=== PATIENT | female | born 1990 | race Hispanic/Latino ===

== ENCOUNTER 2016-10-29 06:48 | Inpatient (IN) | payer MEDICAID ==
[2016-10-29] MEDS ORDERED: SUBLIMAZE IV PRN (07:50)
[2016-10-29] MEDS ORDERED: BRETHINE SUB-Q PRN (07:50)
[2016-10-29] MEDS ORDERED: MINERAL OIL PO PRN (07:50)
[2016-10-29] MEDS ORDERED: XYLOCAINE 2% INFILTRATI ONE (07:50)
[2016-10-29] MEDS ORDERED: ePHEDrine SULFATE IV PRN (07:50)
--- NOTE | 2016-10-29 07:57 | History and Physical Report ---
History of Present Illness Date of examination: 10/29/16 Date of admission: 10/29/16 07:22 Chief complaint: labor @ 40+6wks, EFW in office 8#7oz 10/25/16 History of present illness: EDC Calculations 10/23/16 Past History : 5 Term Births: 4 Premature Births: 0 Living Children: 4 Para: 4 Mult. Births: 0 Prev : 0 Prev. attempt? 0 Aborta: 0 Elect. Ab: 0 Spont. Ab: 0 Ectopics: 0 # 1 Delivery date: 04/07/2008 Weeks Gestation: 41 labor: no Delivery type: Hours of labor: 8.0 Anesthesia type: epidural [place] [facility] [place] Sex: Male weight: 7 or 8 lbs Name: Rubén Comments: induction for postdtes # 2 Delivery date: 05/06/2011 Weeks Gestation: 40 labor: no Delivery type: Hours of labor: 6 Anesthesia type: none Delivery location: [facility] [place] Sex: Male weight: 9.0 Name: Demari # 3 Delivery date: 03/07/2013 Weeks Gestation: 40 labor: no Delivery type: Hours of labor: 3 Anesthesia type: none Delivery location: [facility] [place] Sex: Female weight: 7 Name: Rakan # 4 Delivery date: 09/14/2015 Weeks Gestation: 40 labor: no Delivery type: Hours of labor: 3 Anesthesia type: none Delivery location: [facility] [place] Infant Sex: Female weight: 7 Name: Joyce Past Medical History: Gallstones Past Medical History Abnormal PAP: negative PASCUAL Exposure: negative Infertility: negative Uterine Anomaly: negative Uterine Surgery (not C/S): negative Other Gynecologic Problems: negative Social Hx: Sue Patient is single Infection History Hx of STD: none Partner hx. of genital herpes: no Genetic History Congenital Heart Defect: Mom: no Dad: no Yue Disease: Mom: no Dad: no Thalassemia Mom: no Dad: no Neural Tube Defect Mom: no Dad: no Down's Syndrome Mom: no Dad: no Vernon-Sachs Mom: no Dad: no Sickle Cell Disease/Trait Mom: no Dad: no Hemophilia Mom: no Dad: no Muscular Dystrophy Mom: no Dad: no Cystic Fibrosis Mom: no Dad: no [place] Chorea Mom: no Dad: no Mental Retardation Mom: no Dad: no Fragile X Mom: no Dad: no Other Genetic/Chromosomal Disorder Mom: no Dad: no Child w/other defect Mom: no Dad: no Enviromental Exposures Xray Exposure: no Medication, drug, or alcohol use since LMP: no Chemical/Other Exposure: no Exposure to Cat Liter: no Active Medications (reviewed today): FORMULA 27-1 MG ORAL TABS ( VIT-FE FUMARATE-FA) 1 po q day as directed Current Allergies (reviewed today): No known allergies Past History Past Medical History: no pertinent history Social history: no significant social history - Obstetrical History Expected Date of Delivery: 10/23/16 Actual Gestation: 40 Week(s) 6 Day(s) : 5 Para: 4 Hx # Term Pregnancies: 4 Number of Pregnancies: 0 Spontaneous Abortions: 0 Induced : 0 Number of Living Children: 4 Medications and Allergies Allergies Allergy/AdvReac Type Severity Reaction Status Date / Time No Known Allergies Allergy Verified 10/29/16 07:37 Home Medications Medication Instructions Recorded Confirmed Last Taken Type Pnv95/Ferrous Fumarate/FA 1 each PO DAILY 10/29/16 10/29/16 10/28/16 09:00 History [Prenavite Tablet] 1 Review of Systems All systems: negative - Physical Exam Breasts: Positive: normal Cardiovascular: Regular rate Lungs: Positive: Clear to auscultation, Normal air movement Abdomen: Positive: normal appearance, soft, normal bowel sounds Genitourinary (Female): Positive: normal external genitalia, normal perenium Vulva: both: normal Vagina: Positive: normal moisture Uterus: Positive: normal size, normal contour Anus/Rectum: Positive: normal perianal skin Extremities: Positive: normal Deep Tendon Reflex Grade: Normal +2 - Obstetrical FHR: category 2 Uterine Contraction Monitor Mode: External Cervical Dilatation: 8 Cervical Effacement Percentage: 80 station: -1 Uterine Contraction Pattern: Irregular Uterine Tone Measurement Phase: Contraction Uterine Contraction Intensity: Strong/Firm Results All other labs normal. Laboratory Data-Patient Name: CHANDANA RAHMAN Test Date Result Blood Type 08/12/2016 B Rh 08/12/2016 Positive Antibody Screen negative Rubella 08/12/2016 immune Serology (RPR) 09/22/2016 nonreactive HBsAg 08/12/2016 Negative Hemoglobin 08/12/2016 8.8 Hematocrit 08/12/2016 27.7 Platelets 08/12/2016 248 [id number] Chlamydia DNA 09/22/2016 Negative GC DNA/Culture 09/22/2016 Urine Culture 09/08/2016 Final report Group B Strep cult negative PAP 08/04/2016 Normal, Satisfactory HIV 09/22/2016 AFP/Quad Screen Glucola Test 01/14/2013 112 3hr GTT (Fasting) 08/29/2016 83 1 hr 08/29/2016 165 2 hr 08/29/2016 112 3 hr 08/29/2016 81 OPTIONAL LABS-Patient Name:CHANDANA RAHMAN Test Date Result Varicella Ab Sickle Cell 08/12/2016 Negative PPD Fibronectin Cystic Fibrosis Parvovirus TSH Free T4 Hepatitis C ALT AST Uric Acid Creatinine 24 hr Urine Protein PHILIP Assessment and Plan patient arrived to L&D in active labor, 26y/o @ 40+6 weeks. GBS Neg, preexisting anemia taking PO iron. was complicated by late care @ 28 weeks. EFW by u/s in office 10/25/16 8#7oz. Orders in EMR, anticipate . Dr. Purcell aware of patient's admission. - Patient Problems (1) 40 weeks gestation of Current Visit: Yes Status: Acute (2) Active labor at term Current Visit: Yes Status: Acute (3) Anemia affecting in third trimester Current Visit: Yes Status: Acute
[2016-10-29] MEDS ORDERED: PITOCin/NS 20 UNIT/1000ML DRIP 1,000 ML IV SCH ×2 (08:00→09:30)
[2016-10-29] MEDS ORDERED: LACTATED RINGERS 1,000 ML IV SCH (08:00)
[2016-10-29 08:04] LABS: Basophils % (Auto) 0.4 % (0.0-1.8); Eosinophils % (Auto) 0.5 % (0.0-4.3); Hematocrit 29.8 % (30.3-42.9); Hemoglobin 9.7 gm/dl (10.1-14.3); Mean Corpuscular HGB Conc 33 % (30-34); Mean Corpuscular Hemoglobin 26 pg (28-32); Mean Corpuscular Volume 81 fl (79-97); Platelet Count 234 K/mm3 (140-440); Red Cell Distribution Width 14.6 % (13.2-15.2); White Blood Count 11.1 K/mm3 (4.5-11.0)
--- NOTE | 2016-10-29 08:33 | Procedure Note ---
OB Delivery Note - Delivery Date of Delivery: 10/29/16 ( Male) [employer] Driver: PADILLA LONGORIA Estimated blood loss: 200cc - Vaginal Delivery presentation: vertex Delivery position: OA (LUZ) Intrapartum events: meconium (light mec) Delivery induction: none Delivery augmentation: rupture of membranes Delivery monitor: external FHT, external uterine Route of delivery: Delivery placenta: spontaneous Delivery cord: 3 umbilical vessels Episiotomy: none Delivery laceration: none Anesthesia: none Delivery comments: viable male del over intact perineum, LUZ, light mec fluid - was vigiour and crying, placed on mother's abdomen for skin to skin. No shoulder dystocia. 3 vessel cord clamped and cut, placenta del intact and complete. Pit to IVF. fudus firm and bleeding scant. Mother's left labia noted edematous and tender to palpation after delivery, no lacerations or bleeding noted. Will use ice and closely observe. 's weight 8#6, Apgars 8/9, EBL 200. Mother and remain LDR stable. Will consult Dr. Purcell regarding labial swelling. - Infant A at 1 minute: 8 at 5 minutes: 9 Gender: Male (8#6)
[2016-10-29] MEDS: NORCO 5/325 PO PRN ×2 (09:20→22:25)
[2016-10-29] MEDS ORDERED: BENADRYL PO PRN (09:30)
[2016-10-29] MEDS ORDERED: ZOFRAN IV PRN (09:30)
[2016-10-29] MEDS ORDERED: TYLENOL PO PRN ×2 (09:30)
[2016-10-29] MEDS ORDERED: PHENERGAN PO PRN (09:30)
[2016-10-29] MEDS: MOTRIN PO SCH ×2 (09:30→18:20)
[2016-10-29] MEDS ORDERED: DERMOPLAST TP PRN (09:30)
[2016-10-29] MEDS ORDERED: TUCKS PAD TP PRN (09:30)
[2016-10-29] MEDS ORDERED: LANSINOH TP PRN (09:30)
[2016-10-29] MEDS ORDERED: PRENATAL VITAMIN PO SCH (10:00)
[2016-10-29] MEDS ORDERED: DULCOLAX PR PRN (10:00)
[2016-10-29] MEDS ORDERED: SODIUM CHLORIDE FLUSH SYRINGE 10 ML IV PRN (10:00)
[2016-10-29] MEDS ORDERED: COLACE PO SCH (10:00)
--- NOTE | 2016-10-29 10:10 | Event Note ---
Date: 10/29/16 I examined this patient at roughly at 9:30 AM, at least one hour post delivery. She has left vulvar hematoma confined to the left labia majora which developed immediately post delivery. It is now approximately 6 cm AP, 3 cm wide and 3 cm deep--and according to the nurse and pc tech has not significantly changed since. It is tender and does not appear to be expanding anymore. It has a discrete end on the posterior aspect. Will watch carefully and treat with ice and narcotics as needed.
[2016-10-29] MEDS ORDERED: FLUARIX QUAD 2016-2017(36 MOS+) IM ONE (12:00)
[2016-10-29] MEDS: FEOSOL PO SCH ×2 (18:21→22:25)
[2016-10-29 20:21] LABS: Hematocrit 27.3 % (30.3-42.9); Hemoglobin 8.7 gm/dl (10.1-14.3)
[2016-10-29] MEDS ORDERED: MILK OF MAGNESIA PO PRN (22:00)
[2016-10-30] MEDS: MOTRIN PO SCH ×2 (05:43→12:40)
[2016-10-30] MEDS ORDERED: BOOSTRIX IM ONE (06:00)
--- NOTE | 2016-10-30 07:30 | Progress Note ---
Assessment and Plan Patient doing well, no complaints. desires d/c home today. VSSAF, H&H 8.7/27.3 , lochia scant. Patient is to f/u 1 week for infant's circumcision. - Patient Problems (1) 40 weeks gestation of Current Visit: No Status: Resolved (2) Active labor at term Current Visit: No Status: Resolved (3) Anemia affecting in third trimester Current Visit: Yes Status: Acute Plan to address problem: fe supplementation asymptomatic (4) (normal spontaneous vaginal delivery) Diagnosis Date: 10/29/16 Current Visit: Yes Status: Acute (5) Vulvar and perineal hematoma, Diagnosis Date: 10/29/16 Current Visit: Yes Status: Acute Plan to address problem: appears to be resolved, size of left labia much smaller than after delivery Pt denies pain or tenderness Subjective - Subjective Date of service: 10/30/16 (desires d/c home) Principal diagnosis: day #1 s/p Interval history: EDC Calculations 10/23/16 Past History : 5 Term Births: 4 Premature Births: 0 Living Children: 4 Para: 4 Mult. Births: 0 Prev : 0 Prev. attempt? 0 Aborta: 0 Elect. Ab: 0 Spont. Ab: 0 Ectopics: 0 # 1 Delivery date: 04/07/2008 Weeks Gestation: 41 labor: no Delivery type: Hours of labor: 8.0 Anesthesia type: epidural Delivery location: [facility] [place] Sex: Male weight: 7 or 8 lbs Name: Rubén Comments: induction for postdtes # 2 Delivery date: 05/06/2011 Weeks Gestation: 40 labor: no Delivery type: Hours of labor: 6 Anesthesia type: none Delivery location: [facility] [place] Sex: Male weight: 9.0 Name: Demari # 3 Delivery date: 03/07/2013 Weeks Gestation: 40 labor: no Delivery type: Hours of labor: 3 Anesthesia type: none Delivery location: [facility] [place] Infant Sex: Female weight: 7 Name: Rakan # 4 Delivery date: 09/14/2015 Weeks Gestation: 40 labor: no Delivery type: Hours of labor: 3 Anesthesia type: none Delivery location: [facility] [place] Infant Sex: Female weight: 7 Name: Joyce Past Medical History: Gallstones Past Medical History Abnormal PAP: negative PASCUAL Exposure: negative Infertility: negative Uterine Anomaly: negative Uterine Surgery (not C/S): negative Other Gynecologic Problems: negative Social Hx: Sue Montanez is single Infection History Hx of STD: none Partner hx. of genital herpes: no Genetic History Congenital Heart Defect: Mom: no Dad: no Yue Disease: Mom: no Dad: no Thalassemia Mom: no Dad: no Neural Tube Defect Mom: no Dad: no Down's Syndrome Mom: no Dad: no Vernon-Sachs Mom: no Dad: no Sickle Cell Disease/Trait Mom: no Dad: no Hemophilia Mom: no Dad: no Muscular Dystrophy Mom: no Dad: no Cystic Fibrosis Mom: no Dad: no Alfredo Chorea Mom: no Dad: no Mental Retardation Mom: no Dad: no Fragile X Mom: no Dad: no Other Genetic/Chromosomal Disorder Mom: no Dad: no Child w/other defect Mom: no Dad: no Enviromental Exposures Xray Exposure: no Medication, drug, or alcohol use since LMP: no Chemical/Other Exposure: no Exposure to Cat Liter: no Active Medications (reviewed today): FORMULA 27-1 MG ORAL TABS ( VIT-FE FUMARATE-FA) 1 po q day as directed Current Allergies (reviewed today): No known allergies Patient reports: appetite normal, voiding normally, pain well controlled, ambulating normally, no dizzy ambulation, no nauseated : doing well, bottle feeding Objective - Vital Signs Latest vital signs: Vital Signs Temp Pulse Pulse Resp BP BP 10/29/16 22:25 18 10/29/16 20:10 98.5 F 73 15 106/56 10/29/16 13:15 97.1 F L 105 H 20 116/57 10/29/16 12:00 98.4 F 82 22 113/61 10/29/16 09:50 98.8 F 88 20 123/73 10/29/16 09:31 92 H 132/73 10/29/16 09:30 18 10/29/16 09:20 18 10/29/16 09:16 139/78 10/29/16 09:12 97.6 F 18 10/29/16 09:01 89 122/70 10/29/16 08:46 90 131/72 10/29/16 08:31 96 H 131/72 10/29/16 07:40 98.7 F 20 Intake and Output 10/29/16 10/30/16 10/30/16 22:59 06:59 14:59 Intake Total 240 240 Balance 240 240 Intake: Oral 240 240 Other: Total, Intake Amount 240 240 # Voids Void 1 - Exam Breasts: Present: normal Cardiovascular: Present: Regular rate Lungs: Present: Clear to auscultation, Normal air movement Abdomen: Present: normal appearance, soft, normal bowel sounds Vulva: both: normal (left labia hematoma greatly reduced in size) Uterus: Present: normal, firm, fundal height at umbilicus Extremities: Present: normal Deep Tendon Reflex Grade: Normal +2 - Labs Labs: Abnormal lab results 10/29/16 10/29/16 Range/Units 07:30 19:40 WBC 11.1 H (4.5-11.0) K/mm3 Hgb 9.7 L 8.7 L (10.1-14.3) gm/dl Hct 29.8 L 27.3 L (30.3-42.9) % MCH 26 L (28-32) pg Seg Neutrophils % 75.6 H (40.0-70.0) % Seg Neutrophils # 8.4 H (1.8-7.7) K/mm3
--- NOTE | 2016-10-30 07:33 | Discharge Summary ---
Providers - Providers Date of Admission: 10/29/16 07:22 Date of discharge: 10/30/16 (desires d/c home) Attending physician: MERARI RODRIGUEZ 10/29/16 09:01 Consult to Transport Medic [CONS] Routine Reason For Exam: assistance with , SNS Primary care physician: MERARI RODRIGUEZ Hospitalization Reason for admission: active labor Delivery: Episiotomy: none Laceration: none Other procedures: none complications: none Discharge diagnosis: IUP at term delivered baby: male Hospital course: uncomplicated vaginal delivery Condition at discharge: Good Disposition: DISCHARGED TO HOME OR SELFCARE - Discharge Diagnoses (1) Anemia affecting in third trimester Status: Acute (2) (normal spontaneous vaginal delivery) Status: Acute (3) Vulvar and perineal hematoma, Status: Acute Plan - Discharge Medications Prescriptions: Lidocain2.5%/Prilocai2.5% [Emla] 5 gm TP ONCE PRN #1 tube PRN Reason: Pain Ferrous Sulfate [Feosol 325 MG tab] 325 mg PO TID #90 tablet Ibuprofen [Motrin 800 MG tab] 800 mg PO Q8HR PRN #30 tablet PRN Reason: Pain - Provider Discharge Summary Activity: routine, no sex for 6 weeks, no heavy lifting 4 weeks, no strenuous exercise Diet: routine Instructions: routine Additional instructions: [] Smoking cessation referral if applicable(refer to patient education folder for contact #) [] Refer to [facility]'s [facility] Booklet Call your doctor immediately for: * Fever > 100.5 * Heavy vaginal bleeding ( >1 pad per hour) * Severe persistent headache * Shortness of breath * Reddened, hot, painful area to leg or breast * Drainage or odor from incision. * Keep incision clean and dry at all times and follow doctor's instructions regarding bathing/showering - Follow up plan Follow up: MERARI RODRIGUEZ MD [Primary Care Provider] - 7 Days (Congratulations! Please call [phone] to schedule your son's circumcision in 1 week and your visit in 4 weeks. Bring EMLA cream with you to your son's appointment and await further instruction.)
[2016-10-30] MEDS ORDERED: FLUARIX QUAD 2016-2017(36 MOS+) IM ONE (12:00)
[2016-10-30 12:35] VITALS: BP 100/50
[2016-10-30] MEDS: FEOSOL PO SCH (12:40)
== END 2016-10-30 14:20 | disposition home or self-care (01) | DRG 774 ==
LOC: TRG 06:48 → LD 07:22 → OB 11:02
PROVIDERS: ADMIT Obstetrics & Gynecology; ATTEND Obstetrics & Gynecology
PROC: 10E0XZZ Delivery of Products of Conception, External Approach (ICD-10-PCS; principal; 2016-10-29)
DX: O99.02 Anemia complicating childbirth (principal); O90.2 Hematoma of obstetric wound; O77.0 Labor and delivery complicated by meconium in amniotic fluid; Z3A.40 40 weeks gestation of pregnancy; Z37.0 Single live birth
CPT/HCPCS: 36415; 85014; 85018; 85025; 86592; 86850; 86900; 86901; 90686; 90715; J2590; J7120